=== PATIENT | female | born 1960 | race Caucasian/White ===

== ENCOUNTER → 2021-05-02 | Outpatient (CLI) | payer BC ==
[~2021-05-02] MED LIST: CATHETER FLUSH 10 ML SYR IV PRN; REGADENOSON 0.4 MG/5 ML SYR (LEXISCAN) IV ONE
[2021-05-02 12:22] VITALS: BP 136/60
--- NOTE | 2021-05-02 18:42 | NUCLEAR STRESS TEST ---
T[facility] NUCLEAR STRESS TEST Date of procedure: 05/02/2021. Primary care provider: Unknown. Admitting physician: Raz Montana Jr., MD. INDICATION: Abnormal ECG. BASELINE ELECTROCARDIOGRAM: Sinus bradycardia 57 bpm with possible old septal myocardial infarction. STRESS TEST PROCEDURE: The patient was exercised for a total of 7 minutes and 30 seconds of the standard Ezequiel protocol achieving a maximum MET level of 8.8. The resting heart rate was 57 bpm and the peak heart rate was 140 bpm, which represents 87% of the maximum predicted heart rate. The resting blood pressure was 145/58 mmHg and the peak blood pressure was 192/87 mmHg. This represents a normal heart rate and a normal blood pressure response to exercise. The test was stopped due to fatigue. There was no chest discomfort during the test. There were isolated premature ventricular complexes during the test. There were no significant stress induced electrocardiogram changes. The patient exhibited good exercise capacity for age. NUCLEAR PROCEDURE: The patient was administered 10.5 mCi of intravenous technetium 99m Tetrofosmin at rest for the rest images. The patient was subsequently administered 31.2 mCi of intravenous technetium 99 M Tetrofosmin at peak stress for the stress images. Following an appropriate wait after each injection, imaging was obtained. The images were subsequently processed and reformatted in the usual views. Gated imaging was obtained. The image quality was adequate but with some degree of gastrointestinal attenuation artifact. CT attenuation correction was used as a adjunct to standard imaging. Both the corrected and uncorrected images were reviewed for interpretation. NUCLEAR RESULTS: There was normal myocardial perfusion in all segments without evidence of infarction or ischemia. There was normal left ventricular chamber size with an end-diastolic volume of 86 mL and an end-systolic volume of 27 mL. There was no evidence of transient ischemic dilatation. The TID ratio was 1.11. There was normal wall motion in all segments with a calculated ejection fraction of 68%. IMPRESSION: 1. Normal heart rate and blood pressure response to exercise. 2. There was no exercise-induced chest discomfort. 3. There were isolated premature ventricular complexes during the test. 4. There were no exercise-induced electrocardiogram changes. 5. The patient exhibited good exercise capacity for age at 7 minutes and 30 seconds of the Ezequiel protocol. 6. There was normal myocardial perfusion in all segments without evidence of infarction or ischemia. 7. There was normal wall motion in all segments with a calculated ejection fraction of 60%. Certain portions of this document may have been dictated utilizing voice recognition technology. Inherent to this technology, typographical and grammatical errors may exist. As much as I am diligent to identify and correct these mistakes, some errors may remain in the document. RAZ MONTANA JR, MD May 02, 2021 18:42
== END ==
LOC: CARD 11:00
PROVIDERS: ATTEND Internal Medicine Cardiovascular Disease
DX: I51.7 Cardiomegaly (principal); R94.31 Abnormal electrocardiogram [ECG] [EKG]
CPT/HCPCS: 78452; 93017; 93306; A9502